=== PATIENT | female | born 1990 | race Caucasian/White ===

== ENCOUNTER → 2017-06-22 | Outpatient (CLI) | payer BC ==
[~2017-06-22] MED LIST: MTR600X PO; PRENTAB26 PO
== END | disposition home or self-care (01) ==
LOC: C.PAPS 09:30
PROVIDERS: ATTEND Physician Assistant
DX: Z01.419 Encounter for gynecological examination (general) (routine) without abnormal findings (principal); R87.610 Atypical squamous cells of undetermined significance on cytologic smear of cervix (ASC-US)

== ENCOUNTER → 2017-08-21 | Outpatient (CLI) | payer OTHER ==
[2017-08-21 11:18] LABS: BASO % 0.6 %; BASO ABS # 0.04 K/uL (0-0.2); EOS % 1.6 %; HEMATOCRIT 39.8 % (37-47); HEMOGLOBIN 13.9 g/dL (12.0-16.0); IG# 0.01 K/uL (0.00-0.02); LYMPH % 35.9 %; LYMPH ABS # 2.23 K/uL (1.2-3.4); MEAN CELL VOLUME 92.8 fL (80-100); MEAN CORPUSCULAR HEMOGLOBIN 32.4 pg (25-34); MEAN CORPUSCULAR HGB CONC 34.9 g/dl (32-36); MEAN PLATELET VOLUME 11.3 fL (7.4-10.4); MONO ABS # 0.56 K/uL (0.11-0.59); NEUT % 52.7 %; NEUT ABS # 3.28 K/uL (1.4-6.5); PLATELET COUNT 236 K/uL (130-400); RED CELL DISTRIBUTION WIDTH CV 12.4 % (11.5-14.5); WHITE BLOOD COUNT 6.22 K/uL (4.8-10.8)
[2017-08-21 11:32] LABS: ALT/SGPT 18 U/L (12-78); AST/SGOT 9 U/L (15-37); BLOOD UREA NITROGEN 15 mg/dl (7-18); CALCIUM 8.9 mg/dl (8.5-10.1); CARBON DIOXIDE 25 mmol/L (21-32); CREATININE 0.73 mg/dl (0.60-1.20); GLUCOSE 99 mg/dl (70-99); SODIUM 138 mmol/L (136-145)
[2017-08-21 11:43] LABS: ALKALINE PHOSPHATASE 75 U/L (45-117); TOTAL PROTEIN 7.9 gm/dl (6.4-8.2)
== END | disposition home or self-care (01) ==
LOC: C.LABBC 08:11
PROVIDERS: ATTEND Neuromusculoskeletal Medicine & OMM
DX: R63.5 Abnormal weight gain (principal); R68.89 Other general symptoms and signs; R53.83 Other fatigue

== ENCOUNTER → 2018-02-26 | Outpatient (CLI) | payer OTHER | END | disposition home or self-care (01) | LOC: C.LABSPEC 11:02 | PROVIDERS: ATTEND Obstetrics & Gynecology | DX: O09.291 Supervision of pregnancy with other poor reproductive or obstetric history, first trimester (principal); Z3A.00 Weeks of gestation of pregnancy not specified ==

== ENCOUNTER → 2018-03-05 | Outpatient (CLI) | payer OTHER ==
[2018-03-05 09:52] LABS: BASO % 0.5 %; BASO ABS # 0.03 K/uL (0-0.2); EOS % 0.3 %; EOS ABS # 0.02 K/uL (0-0.5); HEMATOCRIT 33.5 % (37-47); HEMOGLOBIN 12.1 g/dL (12.0-16.0); IG# 0.01 K/uL (0.00-0.02); LYMPH % 27.1 %; MEAN CELL VOLUME 91.3 fL (80-100); MEAN CORPUSCULAR HGB CONC 36.1 g/dl (32-36); MEAN PLATELET VOLUME 11.3 fL (7.4-10.4); MONO % 8.9 %; MONO ABS # 0.56 K/uL (0.11-0.59); NEUT ABS # 3.95 K/uL (1.4-6.5); PLATELET COUNT 209 K/uL (130-400); RED CELL DISTRIBUTION WIDTH CV 12.2 % (11.5-14.5); WHITE BLOOD COUNT 6.27 K/uL (4.8-10.8)
== END | disposition home or self-care (01) ==
LOC: C.LAB1850 08:44
PROVIDERS: ATTEND Obstetrics & Gynecology
DX: O09.291 Supervision of pregnancy with other poor reproductive or obstetric history, first trimester (principal); Z3A.00 Weeks of gestation of pregnancy not specified

== ENCOUNTER → 2018-03-11 | Outpatient (CLI) | payer OTHER | END | disposition home or self-care (01) | LOC: C.LAB1850 16:32 | PROVIDERS: ATTEND Obstetrics & Gynecology | DX: R30.0 Dysuria (principal) ==

== ENCOUNTER 2018-10-07 08:42 | Inpatient (IN) ==
[2018-10-07] MEDS ORDERED: OXYTOCIN 30 UNITS/500 ML BAG IV PRN ×3 (11:44→17:17)
[2018-10-07] MEDS ORDERED: LACTATED RINGER'S 1,000 ML IV PRN ×3 (11:44→16:11)
[2018-10-07] MEDS ORDERED: LACTATED RINGER'S 1,000 ML IV SCH (11:45)
[2018-10-07 12:05] LABS: Hematocrit (blood only) 33.8 % (37-47); Hemoglobin 11.9 g/dL (12.0-16.0); Mean Corpuscular Hgb Conc 35.2 g/dL (32-36); Mean Corpuscular Volume 93.4 fL (80-100); Mean Platelet Volume 12.1 fL (7.4-10.4); Platelet Count 170 K/uL (130-400); RDW Coefficient of Variation 13.5 % (11.5-14.5); RDW Standard Deviation 46.1 fL (36.4-46.3); Red Blood Count 3.62 M/uL (4.2-5.4); White Blood Count 10.96 K/uL (4.8-10.8)
--- NOTE | 2018-10-07 12:10 | History & Physical Report ---
Date of Service October 07, 2018 Assessment & Plan (1) 39 weeks gestation of : Will plan for IOL - pitocin, then AROM when able. Reviewed plans with patient, she is agreeable. History of Present Illness Chief Complaint: IOL Primary Care Provider: Dion Talavera, DO 28yo @ 39 0/7 presents for scheduled IOL due to h/o demise at 31w in 2013. Had normal healthy delivery of a baby girl in 2016. + movement. No vaginal bleeding or leaking fluid. Rare ctx. 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 She consulted with neuro prior to last delivery and had no concerns or complications with vaginal delivery. Allergies Allergy/AdvReac Type Severity Reaction Status Date / Time latex Allergy Intermediate ITCHY AND Verified 04/14/18 20:33 BURNING Sulfa (Sulfonamide Allergy Unknown Unknown Verified 04/14/18 20:34 Antibiotics) Home Medications Home Medications Medication Instructions Recorded Confirmed Type PNV cmb#95-ferrous fumarate-FA 1 tab PO DAILY 04/14/18 10/07/18 History [] ferrous sulfate [Iron (ferrous 325 mg PO DAILY 10/07/18 10/07/18 History sulfate)] Patient History Medical History History of depression (Chronic) Eustachian tube dysfunction (Acute) Mood disorder (Acute) Aneurysm Subarachnoid cyst Social History Preferred Language: Hebrew Communication Ability: Effective Health Care Marketing Specialist Required: No Beliefs That Will Affect Care: None marital status: Current Living Situation: Spouse Current Living Situation Comment: Lives at home with and 3 year old daughter. Other Information That Helps Us Care for You: No Feels Safe at Home: Yes Safety Concerns: Feels Safe At This Time Smoking Status: Former smoker Hx Alcohol Use: No Hx Substance Use: No Physical Exam Vital Signs (Past 24 Hours): Last Vital Signs Temp 36.2 C L 10/07/18 10:42 Pulse 103 H 10/07/18 10:42 Resp 18 10/07/18 10:42 BP 121/79 10/07/18 10:42 Physical Exam: Gen: AAOx3 NAD CV: RRR L: CTAB Abd: soft, gravid, NTTP. No s/s chorio or abruption. Ext: no edema SVE: 4/80/-2 FHT: Cat 1 [place]: rare Limited bedside ultrasound: cephalic, placenta right lateral, + movement, +cardiac activity, adequate-appearing fluid
[2018-10-07] MEDS ORDERED: BUPIVACAINE 0.25% 30 ML VIAL ONE (14:31)
[2018-10-07] MEDS ORDERED: ePHEDrine sulfate 50 MG/ML AMP ONE (14:32)
[2018-10-07] MEDS ORDERED: fentaNYL citrate 100 MCG/2 ML VIAL ONE (14:32)
[2018-10-07] MEDS ORDERED: fentaNYL 2MCG/ML ROPIV 1.25MG/ML 100 ML BAG EPI ONE (14:33)
[2018-10-07] MEDS ORDERED: NALOXONE HCL 0.4 MG/1 ML VIAL/CARP IV PRN (16:11)
[2018-10-07] MEDS ORDERED: ePHEDrine sulfate 50 MG/ML AMP IV PRN (16:11)
[2018-10-07] MEDS ORDERED: NALBUPHINE HCL INJ 10 MG/ML AMP IV PRN (16:11)
[2018-10-07] MEDS ORDERED: PROMETHAZINE HCL 6.25 MG in SODIUM CHLORIDE 0.9% 50 ML IV PRN (16:11)
[2018-10-07] MEDS ORDERED: NALOXONE HCL 1 MG in SODIUM CHLORIDE 0.9% 1000ML 1,000 ML IV PRN (16:11)
[2018-10-07] MEDS ORDERED: DiphenhydrAMINE HCL 50 MG/ML VIAL IV PRN (16:11)
[2018-10-07] MEDS ORDERED: ONDANSETRON INJ 2 MG/ML 2 ML VIAL IV PRN (16:11)
--- NOTE | 2018-10-07 16:11 | Anesthesiology Consultation ---
Date of Service October 07, 2018 Assessment & Plan (1) Encounter for pre-operative examination: Chart Review Chart Review: Patient NOT seen in Pre Admission Testing and Acceptable Risk for Labor Epidural Consults Requested none ASA ASA2 Proposed Anesthesia Anesthesia Type: Labor Epidural and CSE Risk / Benefits Reviewed With: PT / POA / Parent / Guardian, Accepts Plan and Informed Consent Obtained NPO Date Last Intake of Fluids: 10/07/18 Time Last Intake of Fluids: 13:00 Date Last Intake of Solids: 10/06/18 Time Last Intake of Solids: 12:00 History Height/Weight Height: 5 ft 7 in Weight: 92.533 kg Allergies Allergy/AdvReac Type Severity Reaction Status Date / Time latex Allergy Intermediate ITCHY AND Verified 04/14/18 20:33 BURNING Sulfa (Sulfonamide Allergy Unknown Unknown Verified 04/14/18 20:34 Antibiotics) Medications Home Medications Medication Instructions Recorded Confirmed Last Taken PNV cmb#95-ferrous fumarate-FA 1 tab PO DAILY 04/14/18 10/07/18 10/06/18 07:00 [] ferrous sulfate [Iron (ferrous 325 mg PO DAILY 10/07/18 10/07/18 10/06/18 07:00 sulfate)] Active Medications Generic Name Dose Route Start Last Admin Trade Name Freq PRN Reason Stop Dose Admin Lactated Ringer's 1,000 mls @ 125 mls/hr 10/07/18 11:45 10/07/18 14:35 Lr IV 10/09/18 11:44 999 mls/hr .Q8H SAMMIE Infusion Oxytocin 30 units in 500 mls @ 5 mls/hr 10/07/18 12:37 10/07/18 14:05 Pitocin IV 10/09/18 12:36 0.3 units/hr .Q24H PRN 5 mls/hr Labor Induction/Augmentation Titration Protocol 0.3 UNITS/HR Past Medical History Medical History History of depression (Chronic) Eustachian tube dysfunction (Acute) Mood disorder (Acute) Aneurysm Subarachnoid cyst Past Family History Family History Other No pertinent family history Social History Smoking Status: Former smoker Do You Dip or Chew Tobacco: No Hx Alcohol Use: No Hx Substance Use: No Physical Exam Vital Signs Last Vital Signs Temp 36.2 C L 10/07/18 10:42 Pulse 88 10/07/18 16:06 Resp 18 10/07/18 10:42 BP 115/57 L 10/07/18 16:00 Pulse Ox 99 10/07/18 16:06 ENMT Mouth: no TMJ abnormality Thyromental Distance: > or= 3.5 Finger Breadths Mallampati Class: II Neck normal visual inspection Respiratory normal respiratory effort Cardiovascular Rate/Rhythm: regular rate and regular rhythm Neurologic moves all extremities Psychiatric Orientation: alert Testing Laboratory Results 10/07/18 11:54
--- NOTE | 2018-10-07 16:21 | Procedure Note ---
Vaginal Delivery Summary Date of Service October 07, 2018 Vaginal Delivery Summary Pre-delivery diagnosis: 28yo @ 39 0/7 for IOL due to h/o demise in prior preg Post-delivery diagnosis: same Procedure: spontaneous vaginal delivery Surgeon: Dr Hillman EBL: 300ml Findings: Viable male , apgars 8/9. Weight pending, please see nursery records. Complications: none Description of delivery: The patient progressed to complete with spinal anesthesia. She then began to push. She spontaneously vaginally delivered a viable male from the cephalic presentation, SIMONE position. The head delivered, no nuchal cord, then the anterior shoulder. The posterior shoulder did not deliver immediately, therefore patient was positioned flat on her back, and the anterior shoulder was gently delivered further, and the posterior shoulder then delivered spontaneously. There was some tissue dystocia during delivery of baby's torso. Maternal pushing further delivered . The cord was doubly clamped and cut immediately, as the baby was floppy, and handed to nursery team. The baby immediately perked up and a spontaneous cry was heard prior to one minute of life. The placenta was delivered spontaneously intact with a 3 vessel cord. The uterus was swept of all clots and debris, and the cervix/vagina/perineum were inspected and no lacerations were noted. Pitocin given, the uterus became firm. Excellent hemostasis. Sponge/instrument counts correct x 2. Mother and baby are recovering in the room in stable and good condition.
[2018-10-07] MEDS ORDERED: ACETAMINOPHEN 325 MG TAB PO PRN (17:17)
[2018-10-07] MEDS ORDERED: DIPHTHERIA/TETANUS/PERTUSSIS 0.5 ML SYR/VIAL IM ONE (17:17)
[2018-10-07] MEDS ORDERED: SUPERCREAM 0.870% 15 GM JAR EXT PRN (17:17)
[2018-10-07] MEDS ORDERED: HYDROCORTISONE ACETATE 25 MG SUPP PR PRN (17:17)
[2018-10-07] MEDS ORDERED: BISACODYL 10 MG SUPP PR PRN (17:17)
[2018-10-07] MEDS ORDERED: OXYCODONE/ACETAMINOPHEN 5mg/325mg TAB PO PRN (17:17)
[2018-10-07] MEDS ORDERED: BENZOCAINE 20% AER SPR 82.5 GM CAN EXT PRN (17:17)
--- NOTE | 2018-10-07 17:30 | Anesthesia Procedure Note ---
Date of Service October 07, 2018 Anesthesia Post Epidural Note Vital Signs Vital Signs: Temp Pulse Resp BP Pulse Ox 36.2 C L 67 18 119/83 99 10/07/18 10:42 10/07/18 17:26 10/07/18 10:42 10/07/18 17:15 10/07/18 17:26 Notes Mental Status: alert / awake / arousable Nausea / Vomiting: adequately controlled Pain: adequately controlled Airway Patency, RR, SpO2: stable & adequate BP & HR: stable & adequate Hydration State: stable & adequate Neuraxial Anesthesia: was administered and sensory block is resolving Anesthetic Complications: no major complications apparent Epidural: Removed without complications and With tip intact
[2018-10-07] MEDS: IBUPROFEN 600 MG TAB PO PRN (19:39)
[2018-10-07] MEDS: DOCUSATE SODIUM 100 MG CAP PO SCH (19:40)
--- NOTE | 2018-10-08 06:43 | Obstetrical Progress Note ---
Date of Service <Lester Castro - Last Filed: 10/08/18 06:43> October 08, 2018 Assessment & Plan <Lester Castro - Last Filed: 10/08/18 06:43> (1) (spontaneous vaginal delivery): -vital signs reviewed and WNL -last Hgb 11.9 -Blood type: A+, GBS-, Rubella Immune -pt doing well clinically -encourage ambulation, monitor and control pain with motrin tylenol, cont regular diet, monitor lochia -cont encourage breast feeding Subjective <Lester Castro - Last Filed: 10/08/18 06:43> 28 y/o PPD1 found in bed this morning in NAD. Reports no acute overnight events. Pt states that she has no pain other than appropriate soreness. Tolerating PO intake without N/V. Able to ambulate without issue. She is breast feeding without issue. No issues with voiding, no BM yet. No other acute concerns or complaints. Review of Systems All systems reviewed & are unremarkable except as noted in HPI & below Physical Exam <Lester Castro - Last Filed: 10/08/18 06:43> Vital Signs (Past 24 Hours) Last Vital Signs Temp 36.5 C 10/08/18 03:19 Pulse 70 10/08/18 03:19 Resp 18 10/08/18 03:19 BP 112/79 10/08/18 03:19 Pulse Ox 100 10/07/18 17:46 Constitutional WD/WN, vitals as above Eyes PERRL, conjunctivae normal, anicteric sclerae ENMT external ear and nose normal, oropharynx normal Respiratory normal respiratory effort, lungs clear to auscultation Cardiovascular RRR, no murmur, no edema Gastrointestinal (Abdomen) mild abd tenderness Skin no rashes, warm and dry Psychiatric A+Ox3, euthymic affect Lymphatic mild LE swelling, no calf tenderness Results & Data <Lester Castro - Last Filed: 10/08/18 06:43> Laboratory Results Laboratory Results - last 24 hr 10/07/18 11:54 WBC 10.96 H RBC 3.62 L Hgb 11.9 L Hct 33.8 L MCV 93.4 MCH 32.9 MCHC 35.2 RDW Std Deviation 46.1 RDW Coeff of Roberta 13.5 Plt Count 170 MPV 12.1 H Medications Administered Current Inpatient Medications Acetaminophen (Tylenol) 650 mg PO Q6H PRN PRN Reason: Pain/HARRIS/Fever Stop: 11/06/18 17:16 Benzocaine (Dermoplast Pain Relieving [place]) 1 appln EXT PRN PRN PRN Reason: Perineal Discomfort Stop: 11/06/18 17:16 Bisacodyl (Dulcolax) 10 mg CO DAILY PRN PRN Reason: No BM on 2nd post- day Stop: 11/06/18 17:16 Bisacodyl (Dulcolax) 5 mg PO 1999 [facility] Stop: 10/08/18 20:01 Cocaine HCl (Supercream 0.870%) 1 gm EXT BID PRN PRN Reason: Hemorrhoidal Inflammation Stop: 10/21/18 17:16 Diphenhydramine HCl (Benadryl) 25 mg IV Q6H PRN PRN Reason: Itching Stop: 10/08/18 16:10 Docusate Sodium (Colace) 100 mg PO BID [facility] Stop: 11/06/18 20:59 Last Admin: 10/07/18 19:40 Dose: 100 mg Documented by: Ephedrine Sulfate (Ephedrine Sulfate) 10 mg IV Q5M PRN PRN Reason: Hypotension Stop: 10/08/18 16:10 Hydrocortisone (Anusol Hc) 25 mg CO BID PRN PRN Reason: Hemorrhoidal Inflammation Stop: 11/06/18 17:16 Lactated Ringer's (Lr) 1,000 mls @ 999 mls/hr IV .Q1H1M PRN PRN Reason: Hypotension Stop: 10/08/18 16:10 Promethazine HCl 6.25 mg/ (Sodium Chloride) 50.25 mls @ 204 mls/hr IV Q6H PRN PRN Reason: Nausea And Vomiting Stop: 10/08/18 16:10 Naloxone HCl 1 mg/ Sodium (Chloride) 1,002.5 mls @ 50 mls/hr IV .Q20H3M PRN PRN Reason: itching or nausea Stop: 10/08/18 16:10 Oxytocin (Pitocin) 30 units in 500 mls @ 333.333 mls/hr IV .Q1H30M PRN; Protocol PRN Reason: BLEEDING CONTROL Stop: 11/06/18 17:16 Ibuprofen (Motrin) 600 mg PO Q4H PRN PRN Reason: Pain/HARRIS/Cramping/Fever Stop: 11/06/18 17:16 Last Admin: 10/07/18 19:39 Dose: 600 mg Documented by: Nalbuphine HCl (Nubain) 5 mg IV Q10M PRN PRN Reason: itching or nausea Stop: 10/08/18 16:10 Naloxone HCl (Narcan) 0.1 mg IV UD PRN PRN Reason: respiratory depression Stop: 10/08/18 16:10 Ondansetron HCl (Zofran) 4 mg IV Q6H PRN PRN Reason: Nausea And Vomiting Stop: 10/08/18 16:10 Oxycodone/Acetaminophen (Percocet 5mg/325mg) 1 tab PO Q4H PRN PRN Reason: Pain not relieved by... Stop: 10/21/18 17:16 Prenat Multivit/Bread Supervisor/Iron/Folic Ac ( Vitamin) 1 tab PO QAM SAMMIE Stop: 11/07/18 08:59 <Sarai Hillman, - Last Filed: 10/08/18 08:37> Co-Signing Physician Notes I have seen/examined patient. I have read above note performed by resident and I agree with above. Any changes/additions are as follows: PPD#1 doing well. Co ntinue routine care. Sarai Hillman DO [facility] Resident Activity Tracking <Lester Castro DO - Last Filed: 10/08/18 06:43> Resident Involvement: Resident Care Provided Care Provided: OB Delivery
[2018-10-08 07:03] LABS: Hemoglobin 12.4 g/dL (12.0-16.0)
[2018-10-08] MEDS: PRENATAL VITAMIN 1 TAB PO SCH (09:16)
[2018-10-08] MEDS: DOCUSATE SODIUM 100 MG CAP PO SCH ×2 (09:19→20:32)
[2018-10-08] MEDS: IBUPROFEN 600 MG TAB PO PRN ×2 (09:19→20:32)
[2018-10-08] MEDS ORDERED: BISACODYL 5 MG TABEC PO SCH (20:00)
--- NOTE | 2018-10-09 06:41 | Obstetrical Progress Note ---
Date of Service <Lester HemanthPhilippe Castro - Last Filed: 10/09/18 06:41> October 09, 2018 Assessment & Plan <Lester Castro - Last Filed: 10/09/18 06:41> (1) (spontaneous vaginal delivery): -vital signs reviewed and WNL -last Hgb 12.4 -Blood type: A+, GBS-, Rubella Immune -pt doing well clinically -encourage ambulation, monitor and control pain with motrin tylenol, cont regular diet, monitor lochia -cont encourage breast feeding -plan for d/c today Subjective <Lester HemanthPhilippe Castro DO - Last Filed: 10/09/18 06:41> 28 y/o PPD2 found in bed this morning in NAD. Reports no acute overnight events. Pt states that she has no pain other than appropriate soreness. Tolerating PO intake without N/V. Able to ambulate without issue. She is breast feeding without issue. No issues with voiding, no BM yet. No other acute concerns or complaints. Pt ok with plan for d/c today. Review of Systems All systems reviewed & are unremarkable except as noted in HPI & below Physical Exam <Lester Castro DO - Last Filed: 10/09/18 06:41> Vital Signs (Past 24 Hours) Last Vital Signs Temp 36.4 C L 10/09/18 00:10 Pulse 80 10/09/18 00:10 Resp 20 10/09/18 00:10 BP 124/80 10/09/18 00:10 Pulse Ox 97 10/08/18 15:07 Constitutional WD/WN, vitals as above Eyes PERRL, conjunctivae normal, anicteric sclerae ENMT external ear and nose normal, oropharynx normal Respiratory normal respiratory effort, lungs clear to auscultation Cardiovascular RRR, no murmur, no edema Gastrointestinal (Abdomen) mild abd tenderness FBU Skin no rashes, warm and dry Psychiatric A+Ox3, euthymic affect Lymphatic no LE tenderness, no calf swelling Results & Data <Lester HemanthPhilippe Castro DO - Last Filed: 10/09/18 06:41> Laboratory Results Laboratory Results - last 24 hr 10/08/18 06:35 Hgb 12.4 Hct 36.0 L Medications Administered Current Inpatient Medications Acetaminophen (Tylenol) 650 mg PO Q6H PRN PRN Reason: Pain/HARRIS/Fever Stop: 11/06/18 17:16 Benzocaine (Dermoplast Pain Relieving [place]) 1 appln EXT PRN PRN PRN Reason: Perineal Discomfort Stop: 11/06/18 17:16 Bisacodyl (Dulcolax) 10 mg SD DAILY PRN PRN Reason: No BM on 2nd post- day Stop: 11/06/18 17:16 Cocaine HCl (Supercream 0.870%) 1 gm EXT BID PRN PRN Reason: Hemorrhoidal Inflammation Stop: 10/21/18 17:16 Docusate Sodium (Colace) 100 mg PO BID [facility] Stop: 11/06/18 20:59 Last Admin: 10/08/18 20:32 Dose: 100 mg Documented by: Hydrocortisone (Anusol Hc) 25 mg SD BID PRN PRN Reason: Hemorrhoidal Inflammation Stop: 11/06/18 17:16 Oxytocin (Pitocin) 30 units in 500 mls @ 333.333 mls/hr IV .Q1H30M PRN; Protocol PRN Reason: BLEEDING CONTROL Stop: 11/06/18 17:16 Ibuprofen (Motrin) 600 mg PO Q4H PRN PRN Reason: Pain/HARRIS/Cramping/Fever Stop: 11/06/18 17:16 Last Admin: 10/08/18 20:32 Dose: 600 mg Documented by: Oxycodone/Acetaminophen (Percocet 5mg/325mg) 1 tab PO Q4H PRN PRN Reason: Pain not relieved by... Stop: 10/21/18 17:16 Prenat Multivit/Communication Technician/Iron/Folic Ac ( Vitamin) 1 tab PO QAM [facility] Stop: 11/07/18 08:59 Last Admin: 10/08/18 09:16 Dose: 1 tab Documented by: <Nighat Dominguez MD, FACOG - Last Filed: 10/09/18 08:05> Co-Signing Physician Notes Resident Physician Supervision Note: I interviewed and examined the patient. Discussed with Dr. Castro and agree with findings and plan as documented in the note. Any exceptions or clarifications are listed here: Doing well. Plan d/c. Instructions given. Documented By: Nighat Dominguez MD, FACOG Resident Activity Tracking <Lester Castro, DO - Last Filed: 10/09/18 06:41> Resident Involvement: Resident Care Provided Care Provided: OB Delivery
[2018-10-09] MEDS: DOCUSATE SODIUM 100 MG CAP PO SCH (07:58)
[2018-10-09] MEDS: PRENATAL VITAMIN 1 TAB PO SCH (07:58)
== END 2018-10-09 12:30 | disposition home or self-care (01) | DRG 807 ==
LOC: 4S1 10:04 → 4S2 19:23

== ENCOUNTER 2021-02-18 02:32 | Inpatient (IN) ==
[2021-02-18] MEDS ORDERED: OXYTOCIN 30 UNITS/500 ML BAG IV PRN ×2 (03:03→06:03)
[2021-02-18] MEDS: LACTATED RINGER'S 1,000 ML IV PRN ×2 (03:20→04:19)
--- NOTE | 2021-02-18 03:22 | History & Physical Report ---
Date of Service February 18, 2021 Assessment & Plan (1) : Plan: 30 y/o at 39 3/7 wga presents in labor VSS Fetus cat 2 but reassuring Labor - continue expectant management GBS neg Desires epidural covid P Admission and Anticipated Discharge Date Admission Date: February 18, 2021 History of Present Illness Chief Complaint: Contractions Primary Care Provider: Dion Talavera, DO 30 y/o at 39 3/7 wga w/ SHARONA 8/6 by LMP 05/18 who presents w/ c/o ctx increasing in frequency and intensity. 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, at 31 wks G2 2015 at 39 wks G3 2019 at 39 wks G4 current menarche 13, q32d cycles Hx trich w/ IUFD Hx colpo years ago, last 11/2018 Allergies Allergy/AdvReac Type Severity Reaction Status Date / Time latex Allergy Intermediate ITCHY AND Verified 02/15/21 08:43 BURNING Sulfa (Sulfonamide Allergy Unknown Unknown Verified 02/15/21 08:43 Antibiotics) bupropion [From Wellbutrin] AdvReac Headache Verified 02/15/21 08:43 Home Medications Medication Instructions Recorded Confirmed Type prenat.vits,xuan,xii-jhlj-egwpg 1 tab PO DAILY 08/16/20 02/18/21 History Patient History Medical History Abdominal cramping Abrasion of hand Aneurysm Cervical somatic dysfunction 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 Cranial somatic dysfunction Deep dyspareunia Encounter for annual routine gynecological examination Exposure to hepatitis Fertility testing H/O polycystic ovarian syndrome Head trauma History of amenorrhea History of bronchitis History of bruising easily History of cerebral cyst History of depression History of impacted cerumen Impacted cerumen of both ears Marginal perforation of tympanic membrane of right ear Menorrhagia Subarachnoid cyst Surgical History H/O oral surgery History of brain surgery History of myringotomy History of tympanoplasty S/P adenoidectomy Family History Aunt Breast cancer Mother Depression with anxiety Grandfather (Maternal) Hyperlipidemia Hypertension Grandfather Myocardial infarction Grandmother Hearing loss Other No pertinent family history Denies family history of Ovarian cancer Prostate cancer Colorectal cancer Social History Smoking Status: Former smoker Tobacco Type: Cigarettes Age Started Using Tobacco: 17; Age Quit Using Tobacco: 24; packs per day: 0.5; Second Hand Exposure: No; Hx Alcohol Use: No Hx Substance Use: No Preferred Language: Cuban Communication Ability: Effective Visual Impairment: No Limitations Hearing Ability: Hard of Hearing Tobacco Drummer Required: No Beliefs That Will Affect Care: None marital status: marital status details: Zion Gutierrez (30) [phone] Current Living Situation: Spouse Current Living Situation Comment: Lives with spouse, 2 children, dogs, cats- spouse changing litter current occupational status: employed current occupation: [employer] Other Information That Helps Us Care for You: No Feels Safe at Home: Yes Safety Concerns: Feels Safe At This Time Childhood Exposure to Second-Hand Smoke: Yes Dental Care, Regularly: Yes Physical Activity Frequency: Does not Exercise Seatbelt Use: always Sunscreen Use: Yes Assistive Devices: Glasses Physical Exam Constitutional: WD/WN, vitals as above Respiratory: normal respiratory effort; no respiratory distress and no labored breathing Genitourinary: OB Exam Abdomen: + estimated weight (7-8) OB Exam Monitor Tracing: + external FHT monitor used, + external uterine monitor used (q5) and + category II (125/mod/+accels/+variables w/ ctx) SVE 6/90/-1 per nursing Results & Data ([facility]) Vital Signs (Past 12 Hours) Vital Signs Temp Pulse Resp BP 02/18/21 02:53 97.5 F L 18 02/18/21 02:48 63 113/64 Laboratory Results OB Labs: Blood Type A Positive 07/24/20 Antibody Screen NEGATIVE 07/24/20 Hemoglobin 11.4 g/dL (12.0-16.0) L 12/04/20 Hematocrit 32.8 % (37-47) L 12/04/20 Mean Corpuscular Volume 94.2 fL (80-100) 07/24/20 Platelet Count 242 K/uL (130-400) 07/24/20 Rubella IgG Antibody Immune (Immune) 07/24/20 Rapid Plasma Reagin Nonreactive (Nonreactive) 07/24/20 Hepatitis B Surface Antigen Neg (Neg) 07/24/20 HIV (1&2) Ab and P24 Ag, 4th Gener Neg (Neg) 07/24/20 Glucose 1 Hour 50 gm Load 128 mg/dl (70-130) 12/04/20 OB Optional Labs: Chlamydia trachomatis RNA NOT DETECTED (NOT DETECTED) 07/24/20 Neisseria gonorrhoeae RNA NOT DETECTED (NOT DETECTED) 07/24/20 Thyroid Stimulating Hormone (TSH) 1.800 uIu/ml (0.300-4.500) 05/16/20 Diagnostic Findings posterior plac Coding Level of Care Code None Diagnoses Z34.90
[2021-02-18 03:26] LABS: Hematocrit (blood only) 36.3 % (37-47); Hemoglobin 12.4 g/dL (12.0-16.0); Mean Corpuscular Hemoglobin 32.1 pg (25-34); Mean Corpuscular Hgb Conc 34.2 g/dL (32-36); Platelet Count 170 K/uL (130-400); RDW Coefficient of Variation 13.2 % (11.5-14.5); RDW Standard Deviation 45.4 fL (36.4-46.3); Red Blood Count 3.86 M/uL (4.2-5.4); White Blood Count 10.98 K/uL (4.8-10.8)
[2021-02-18] MEDS ORDERED: SODIUM CHLORIDE 0.9% INJ 10 ML VIAL ONE (03:35)
[2021-02-18] MEDS ORDERED: BUPIVACAINE 0.25% 30 ML VIAL ONE (03:35)
[2021-02-18] MEDS ORDERED: ePHEDrine sulfate 50 MG/ML AMP ONE (03:35)
[2021-02-18] MEDS ORDERED: fentaNYL citrate 100 MCG/2 ML VIAL ONE (03:35)
[2021-02-18] MEDS ORDERED: fentaNYL 2MCG/ML ROPIVACAINE 1.25MG/ML 100 ML BAG EPI ONE (03:36)
[2021-02-18] MEDS: CALCIUM CARBONATE 500 MG CHEWABLE TAB PO PRN ×2 (03:37→08:47)
[2021-02-18] MEDS ORDERED: fentaNYL 2MCG/ML ROPIVACAINE 1.25MG/ML 100 ML BAG EPI PRN (04:10)
[2021-02-18] MEDS ORDERED: NALOXONE HCL 1 MG in SODIUM CHLORIDE 0.9% 1000ML 1,000 ML IV PRN (04:10)
[2021-02-18] MEDS ORDERED: ePHEDrine sulfate 50 MG/ML AMP IV PRN (04:10)
[2021-02-18] MEDS ORDERED: diphenhydrAMINE 50 MG/ML VIAL IV PRN (04:10)
[2021-02-18] MEDS ORDERED: NALOXONE HCL 0.4 MG/1 ML VIAL/CARP IV PRN (04:10)
[2021-02-18] MEDS ORDERED: NALBUPHINE HCL INJ 10 MG/ML AMP IV PRN (04:10)
--- NOTE | 2021-02-18 04:16 | Anesthesiology Consultation ---
Date of Service February 18, 2021 History Height/Weight Height: 5 ft 7 in Weight: 85.729 kg Allergies Allergy/AdvReac Type Severity Reaction Status Date / Time latex Allergy Intermediate ITCHY AND Verified 02/15/21 08:43 BURNING Sulfa (Sulfonamide Allergy Unknown Unknown Verified 02/15/21 08:43 Antibiotics) bupropion [From Wellbutrin] AdvReac Headache Verified 02/15/21 08:43 Medications Home Medications Medication Instructions Recorded Confirmed Last Taken prenat.vits,xuan,cdp-smly-pxwqv 1 tab PO DAILY 08/16/20 02/18/21 02/17/21 Active Medications Generic Name Dose Route Start Last Admin Trade Name Freq PRN Reason Stop Dose Admin Calcium Carbonate 1,500 mg 02/18/21 03:22 02/18/21 03:37 Calcium Carbonate 500 Mg Chewable Tab PO 03/20/21 03:21 1,500 mg Q4H PRN Administration Indigestion Lactated Ringer's 1,000 mls @ 125 mls/hr 02/18/21 03:03 02/18/21 03:20 Lr IV 02/20/21 03:02 999 mls/hr .Q8H PRN Administration L&D Protocol Protocol NPO Date Last Intake of Fluids: 02/18/21 Time Last Intake of Fluids: 01:00 Date Last Intake of Solids: 03/20/21 Time Last Intake of Solids: 18:00 Past Medical History Medical History Abdominal cramping Abrasion of hand Aneurysm Cervical somatic dysfunction 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 Cranial somatic dysfunction Deep dyspareunia Encounter for annual routine gynecological examination Exposure to hepatitis Fertility testing H/O polycystic ovarian syndrome Head trauma History of amenorrhea History of bronchitis History of bruising easily History of cerebral cyst History of depression History of impacted cerumen Impacted cerumen of both ears Marginal perforation of tympanic membrane of right ear Menorrhagia Subarachnoid cyst Exercise / Class Metabolic Activity II 4-5 Yardwork/Stairs/Walk up hill Past Family History Family History Aunt Breast cancer maternal Mother Depression with anxiety Grandfather (Maternal) Hyperlipidemia great grandfather Hypertension Grandfather Myocardial infarction Grandmother Hearing loss Other No pertinent family history Denies family history of Ovarian cancer Prostate cancer Colorectal cancer Past Surgical History Surgical History H/O oral surgery History of brain surgery History of myringotomy History of tympanoplasty S/P adenoidectomy Past Anesthesia History No Hx of Anesthesia Complications and No Family Hx of Anesthesia Complications History of PONV No Hx of PONV and No Hx of Motion Sickness Social History Smoking Status: Former smoker Hx Alcohol Use: No Alcohol type: beer Hx Substance Use: No Last Used Substance: Unknown Last Used Substance Other:: WEEKS AGO DID HAVE MED MARIJUANA CARD PRIOR PER PT Physical Exam Vital Signs Last Vital Signs Temp 36.4 C L 02/18/21 02:53 Pulse 87 02/18/21 04:11 Resp 18 02/18/21 02:53 BP 113/64 02/18/21 02:48 Pulse Ox 100 02/18/21 04:11 Testing Laboratory Results 02/18/21 03:13
--- NOTE | 2021-02-18 05:41 | Delivery Summary ---
Vaginal Delivery Summary Date of Service February 18, 2021 Vaginal Delivery Summary PREOPERATIVE DIAGNOSIS: 1. Single intrauterine at 39 3/7 weeks gestation 2. Labor 3. History of cerebral arterial aneurysm 4. History of IUFD POSTOPERATIVE DIAGNOSIS: 1. Single intrauterine at 39 3/7 weeks gestation 2. Labor 3. History of cerebral arterial aneurysm 4. History of IUFD 5. Delivered PROCEDURE: 1. Normal spontaneous vaginal delivery. SURGEON: oJy Self MD ANESTHESIA: Epidural. ESTIMATED BLOOD LOSS: 300 mL FLUIDS: Continuous LR. URINE OUTPUT: None. COMPLICATIONS: None. CONDITION: Stable. INDICATIONS: 30 y/o at 39 3/7 wga presented to labor and delivery with complaints of contractions increasing in frequency and intensity. Cervical exam was found to be 6cm. She received an epidural for pain control and rapidly progressed to complete. FINDINGS: A viable female with Apgars of 8 and 9 at 1 and 5 minutes respectively. SPECIMEN: Cord blood OPERATIVE REPORT: The patient progressed to 10 cm, 100% effaced and +2 station at which point AROM was performed. Syed then pushed over intact perineum with anesthesia to deliver a viable female , Apgars as above. Head of delivered in SIMONE position. Loose nuchal and body cord was present. Body and shoulders were delivered without difficulty. was delivered to maternal abdomen and nursing staff. Delayed cord clamping was performed for 60 seconds. Cord was clamped and cut. Cord blood was obtained. Placenta delivered spontaneously intact with 3-vessel cord. IV oxytocin and fundal massage were given for excellent hemostasis. Vagina, cervix, perineum, and placenta were inspected. No lacerations were noted. Sponge and needle counts correct x2. No sponges were left behind. Mother and stable in immediate period. [facility] [place] Vaginal Delivery Charge Vaginal Delivery Codes: 31314 global code for the antepartum, delivery, and post- Delivery Type Details: [facility]
[2021-02-18] MEDS ORDERED: bisacodyL 10 MG SUPP PR PRN (06:03)
[2021-02-18] MEDS ORDERED: SUPERCREAM 0.870% 15 GM JAR EXT PRN (06:03)
[2021-02-18] MEDS ORDERED: DIPHTHERIA/TETANUS/PERTUSSIS 0.5 ML SYR/VIAL IM ONE (06:03)
[2021-02-18] MEDS ORDERED: ACETAMINOPHEN 325 MG TAB PO PRN (06:03)
[2021-02-18] MEDS ORDERED: BENZOCAINE 20% AER SPR 82.5 GM CAN EXT PRN (06:03)
[2021-02-18] MEDS ORDERED: HYDROCORTISONE ACETATE 25 MG SUPP PR PRN (06:03)
[2021-02-18] MEDS: IBUPROFEN 600 MG TAB PO PRN ×3 (08:47→20:56)
[2021-02-18] MEDS: DOCUSATE SODIUM 100 MG CAP PO SCH ×2 (11:49→20:39)
[2021-02-18] MEDS: PRENATAL VITAMIN 1 TAB PO SCH (11:49)
--- NOTE | 2021-02-18 14:03 | Anesthesia Procedure Note ---
Date of Service February 18, 2021 Anesthesia Post Epidural Note Vital Signs Vital Signs: Temp Pulse Resp BP Pulse Ox 36.9 C 82 18 106/68 99 02/18/21 12:10 02/18/21 12:10 02/18/21 12:10 02/18/21 12:10 02/18/21 08:45 Pain Intensity Left Abdomen: Pain Intensity: 3 Notes Mental Status: alert / awake / arousable and participated in evaluation Patient Amnestic to Procedure: Yes Nausea / Vomiting: adequately controlled Pain: adequately controlled Airway Patency, RR, SpO2: stable & adequate BP & HR: stable & adequate Hydration State: stable & adequate Neuraxial Anesthesia: was administered and sensory block is resolving Anesthetic Complications: no major complications apparent and Pt Satisfied with anesthetic care
[2021-02-19] MEDS: IBUPROFEN 600 MG TAB PO PRN ×2 (04:40→08:36)
[2021-02-19 06:27] LABS: Hematocrit (blood only) 32.6 % (37-47); Hemoglobin 10.9 g/dL (12.0-16.0); Mean Corpuscular Hemoglobin 31.4 pg (25-34); Mean Corpuscular Hgb Conc 33.4 g/dL (32-36); Mean Corpuscular Volume 93.9 fL (80-100); Mean Platelet Volume 12.2 fL (7.4-10.4); Platelet Count 174 K/uL (130-400); RDW Coefficient of Variation 13.5 % (11.5-14.5); RDW Standard Deviation 46.3 fL (36.4-46.3); Red Blood Count 3.47 M/uL (4.2-5.4)
--- NOTE | 2021-02-19 06:58 | Obstetrical Progress Note ---
Date of Service <Malathi Sánchez DO - Last Filed: 02/19/21 07:53> February 19, 2021 Assessment & Plan <Malathi Sánchez DO - Last Filed: 02/19/21 07:53> (1) Encounter for care and examination after delivery: 30yo Female day 1, stable -Continue routine post care -vital signs reviewed and WNL (Tmax 36.7) -Blood Type A+, GBS-, Rubella Immune -Encourage ambulation, monitor and control pain with Motrin, Percocet PRN, resume regular diet, monitor lochia -continue breast pump and bottle feeding -hemoglobin 12.4-->10.9 Day #:: 1 <Mckenna Vigil MD, FACOG - Last Filed: 02/19/21 08:31> (1) Encounter for care and examination after delivery: Subjective <Malathi Sánchez - Last Filed: 02/19/21 07:53> Ambulation: ambulating normally Voiding: no voiding problems Passing Gas:: Yes (also passing stool) Diet Tolerance:: regular diet Lochia:: Small Feeding Type:: bottle feeding (pumping from breast) Current Pain Level(1-10): 4 (pain well controlled on medication) Review of Systems negative fever chills headache dizziness nausea vomitting SOB palpitations Physical Exam <Malathi Sánchez DO - Last Filed: 02/19/21 07:53> General: Alert, oriented. No acute distress. Cardiac: Regular rate and rhythm, no murmurs/rubs/gallops. Respiratory: Clear to auscultation bilaterally a/p, no wheezes/rales/rhonchi. No increased work of breathing. Symmetrical chest rise. No respiratory distress. Abdomen: Soft, nontender, nondistended. Bowel sounds present. Uterus: Uterine fundus firm, palpable at umbilicus. Lower Extremities: No lower extremity edema or swelling. No deep calf pain. Nancy's negative bilaterally.. Results & Data ([facility]) <Malathi Sánchez DO - Last Filed: 02/19/21 07:53> Vital Signs (Past 12 Hours) Vital Signs Temp Pulse Resp BP 02/19/21 04:40 36.7 C 88 18 122/74 02/19/21 00:10 36.6 C 78 18 104/66 08/02/21 19:25 36.5 C 69 18 103/69 Laboratory Results 02/19/21 Range/Units 05:54 WBC 10.40 (4.8-10.8) K/uL RBC 3.47 L (4.2-5.4) M/uL Hgb 10.9 L (12.0-16.0) g/dL Hct 32.6 L (37-47) % MCV 93.9 (80-100) fL MCH 31.4 (25-34) pg MCHC 33.4 (32-36) g/dL RDW Std Deviation 46.3 (36.4-46.3) fL RDW Coeff of Roberta 13.5 (11.5-14.5) % Plt Count 174 (130-400) K/uL MPV 12.2 H (7.4-10.4) fL Medications Administered Current Inpatient Medications Acetaminophen (Acetaminophen 325 Mg Tab) 650 mg PO Q6H PRN PRN Reason: Pain/HARRIS/Fever Stop: 03/20/21 06:02 Benzocaine (Benzocaine 20% Aer Spr 82.5 Gm Can) 1 appln EXT PRN PRN PRN Reason: Perineal Discomfort Stop: 03/20/21 06:02 Bisacodyl (Bisacodyl 5 Mg Tabec) 5 mg PO 1999 [facility] Stop: 02/19/21 20:01 Bisacodyl (Bisacodyl 10 Mg Supp) 10 mg [place] DAILY PRN PRN Reason: No BM on 2nd post- day Stop: 03/20/21 06:02 Calcium Carbonate (Calcium Carbonate 500 Mg Chewable Tab) 1,500 mg PO Q4H PRN PRN Reason: Indigestion Stop: 03/20/21 03:21 Last Admin: 02/18/21 08:47 Dose: 1,000 mg Documented by: Cocaine HCl (Supercream 0.870% 15 Gm Jar) 1 gm EXT BID PRN PRN Reason: Hemorrhoidal Inflammation Stop: 03/04/21 06:02 Docusate Sodium (Docusate Sodium 100 Mg Cap) 100 mg PO DAILY@ [facility] Stop: 03/20/21 07:59 Last Admin: 02/18/21 20:39 Dose: 100 mg Documented by: Hydrocortisone (Hydrocortisone Acetate 25 Mg Supp) 25 mg [place] BID PRN PRN Reason: Hemorrhoidal Inflammation Stop: 03/20/21 06:02 Oxytocin (Pitocin) 30 units in 500 mls @ 333.333 mls/hr IV .Q1H30M PRN; Protocol PRN Reason: Bleeding Control Stop: 03/20/21 03:02 Lactated Ringer's (Lr) 1,000 mls @ 125 mls/hr IV .Q8H PRN; Protocol PRN Reason: L&D Protocol Stop: 02/20/21 03:02 Last Admin: 02/18/21 04:19 Dose: 125 mls/hr Documented by: Oxytocin (Pitocin) 30 units in 500 mls @ 333.333 mls/hr IV .Q1H30M PRN; Protocol PRN Reason: Bleeding Control Ibuprofen (Ibuprofen 600 Mg Tab) 600 mg PO Q4H PRN PRN Reason: Pain/HARRIS/Cramping/Fever Stop: 03/20/21 06:02 Last Admin: 02/19/21 04:40 Dose: 600 mg Documented by: Michaelat Multivit/[place]/Iron/Folic Ac ( Vitamin 1 Tab) 1 tab PO DAILY@08 SAMMIE Stop: 03/20/21 07:59 Last Admin: 02/18/21 11:49 Dose: Not Given Documented by: <Mckenna Vigil MD, FACOG - Last Filed: 02/19/21 08:31> Co-Signing Physician Notes Resident Physician Supervision Note: I interviewed and examined the patient. Discussed with Dr. Sánchez and agree with findings and plan as documented in the note. Any exceptions or clarifications are listed here: [None] Documented By: Mckenna Vigil MD, FACOG Resident Activity Tracking <Malathi Sánchez DO - Last Filed: 02/19/21 07:53> Resident Involvement: Resident Care Provided Care Provided: OB Delivery
[2021-02-19] MEDS: DOCUSATE SODIUM 100 MG CAP PO SCH (08:36)
[2021-02-19] MEDS: PRENATAL VITAMIN 1 TAB PO SCH (08:36)
[2021-02-19] MEDS ORDERED: bisacodyL 5 MG TABEC PO SCH (20:00)
== END 2021-02-19 10:45 | disposition home or self-care (01) | DRG 807 ==
LOC: 4S1 02:32 → 4S2 08:53